=== PATIENT | male | born 1985 | race African-American/Black ===

== ENCOUNTER 2019-09-09 23:21 | Emergency (ER) | payer BC ==
[~2019-09-09] VITALS: Ht 172.7 cm; Wt 72.7 kg
[2019-09-09] MEDS ORDERED: IPRATROPIUM BROMIDE 0.5 MG/2.5 ML NEB SOLUTION NEB ONE (23:45)
[2019-09-09] MEDS ORDERED: ALBUTEROL SULFATE 2.5 MG/0.5 ML NEB SOLUTION NEB ONE (23:45)
[2019-09-10] MEDS ORDERED: PredniSONE 20 MG TABLET PO ONE (00:15)
[2019-09-10] MEDS ORDERED: ALBUTEROL SULFATE 5 MG/ML 20 ML NEB SOLN [BULK] NEB ONE (00:15)
[2019-09-10] MEDS ORDERED: IPRATROPIUM BROMIDE 0.5 MG/2.5 ML NEB SOLUTION NEB ONE (00:15)
[2019-09-10] MEDS ORDERED: ALBUTEROL SULFATE HFA 90 MCG/PUFF 8 GM INHALER IH ONE (01:00)
[2019-09-10 01:15] VITALS: BP 141/88
== END 2019-09-10 01:17 | disposition home or self-care (01) ==
LOC: EMS 23:21
DX: J45.909 Unspecified asthma, uncomplicated (principal)
CPT/HCPCS: 94640 ×2; 99284; J7512; 94060; J3535